=== PATIENT | female | born 1945 | race Caucasian/White ===

== ENCOUNTER 2017-10-20 15:35 | Emergency (ER) | payer MEDICARE ==
[~2017-10-20] VITALS: Ht 578.2 cm; Wt 111.4 kg
[~2017-10-20 15:35] MED LIST: ASPI-611 PO; HYDR25TA4 PO; LISI-600 PO; MULT-38 PO; PANT40TA4 PO
[2017-10-20 15:57] LABS: BASOPHILS # (AUTO) 0.1 X10'3 (0-0.2); BASOPHILS % (AUTO) 0.8 % (0-1); EOSINOPHILS # (AUTO) 0.2 X10'3 (0-0.9); EOSINOPHILS % (AUTO) 2.2 % (0-6); HEMATOCRIT 40.3 % (35.0-45.0); HEMOGLOBIN 13.9 g/dl (12.0-16.0); LYMPHOCYTES # (AUTO) 2.1 X10'3 (1.1-4.8); LYMPHOCYTES % (AUTO) 21.5 % (21-51); MEAN CORPUSCULAR HEMOGLOBIN 31.6 PG (27.0-31.0); MEAN CORPUSCULAR HGB CONC 34.6 % (33.0-36.5); MEAN CORPUSCULAR VOLUME 91.3 FL (78-98); MEAN PLATELET VOLUME 7.9 FL (7.4-10.4); MONOCYTES # (AUTO) 0.4 X10'3 (0-0.9); MONOCYTES % (AUTO) 3.9 % (2-12); NEUTROPHILS # (AUTO) 7.1 X10'3 (1.8-7.7); NEUTROPHILS % (AUTO) 71.6 % (42-75); PLATELET COUNT 285 X10'3 (140-440); RED BLOOD COUNT 4.42 X10'6 (4.20-5.60); RED CELL DISTRIBUTION WIDTH 13.4 % (11.5-14.5); WHITE BLOOD COUNT 9.9 X10'3 (4.5-11.0)
[2017-10-20 16:11] LABS: PARTIAL THROMBOPLASTIN TIME 27 SECONDS (22-32)
[2017-10-20 16:12] LABS: ALANINE AMINOTRANSFERASE 38 U/L (12-78); ALBUMIN 3.5 G/DL (3.4-5.0); ALBUMIN/GLOBULIN RATIO 0.9 (1.1-1.5); ALKALINE PHOSPHATASE 99 IU/L (46-116); ANION GAP 8 (8-16); ASPARTATE AMINO TRANSFERASE 22 U/L (10-37); BILIRUBIN,TOTAL 0.4 MG/DL (0.1-1.0); BLOOD UREA NITROGEN 21 MG/DL (7-18); BUN/CREATININE RATIO 22.3 (6.6-38.0); CALCIUM 9.4 MG/DL (8.5-10.1); CHLORIDE 102 MMOL/L (99-107); CREATININE 0.94 MG/DL (0.40-0.90); GLUCOSE 92 MG/DL (70-104); POTASSIUM 3.9 MMOL/L (3.5-5.1); SODIUM 139 MMOL/L (135-145); TOTAL CARBON DIOXIDE 29.3 MMOL/L (24-32); TOTAL PROTEIN 7.3 G/DL (6.4-8.2); eGFR 59 ML/MIN
[2017-10-20 16:47] VITALS: BP 167/84
== END 2017-10-20 16:49 | disposition home or self-care (01) ==
LOC: ER 15:36
DX: R07.89 Other chest pain (principal); M54.5 Low back pain; I10 Essential (primary) hypertension; G47.30 Sleep apnea, unspecified; Z88.8 Allergy status to other drugs, medicaments and biological substances; Z79.82 Long term (current) use of aspirin; Z79.899 Other long term (current) drug therapy
CPT/HCPCS: 36415; 71045; 80053; 84484; 85025; 85610; 85730; 93005; 99285

== ENCOUNTER 2018-01-09 08:49 | Day surgery (SDC) | payer MEDICARE ==
[2018-01-01 10:45] LABS: BASOPHILS # (AUTO) 0.1 X10'3 (0-0.2); BASOPHILS % (AUTO) 0.7 % (0-1); EOSINOPHILS # (AUTO) 0.1 X10'3 (0-0.9); EOSINOPHILS % (AUTO) 1.9 % (0-6); LYMPHOCYTES # (AUTO) 1.2 X10'3 (1.1-4.8); MEAN CORPUSCULAR HEMOGLOBIN 31.1 PG (27.0-31.0); MEAN CORPUSCULAR HGB CONC 32.9 % (33.0-36.5); MEAN CORPUSCULAR VOLUME 94.4 FL (78-98); MEAN PLATELET VOLUME 8.7 FL (7.4-10.4); MONOCYTES # (AUTO) 0.2 X10'3 (0-0.9); MONOCYTES % (AUTO) 3.3 % (2-12); NEUTROPHILS # (AUTO) 5.2 X10'3 (1.8-7.7); NEUTROPHILS % (AUTO) 76.1 % (42-75); PRE OP HEMATOCRIT 39.1 % (35.0-45.0); PRE OP HEMOGLOBIN 12.9 g/dL (12.0-16.0); PRE OP PLATELET COUNT 230 X10'3 (140-440); RED BLOOD COUNT 4.15 X10'6 (4.20-5.60)
[2018-01-01 10:59] LABS: CHLORIDE 105 MMOL/L (99-107); PRE OP POTASSIUM 3.9 MMOL/L (3.4-5.1)
[2018-01-01 11:16] LABS: ALBUMIN 3.4 G/DL (3.4-5.0); ALKALINE PHOSPHATASE 83 IU/L (46-116); BLOOD UREA NITROGEN 24 MG/DL (7-18); BUN/CREATININE RATIO 24.7 (6.6-38.0); CALCIUM 9.1 MG/DL (8.5-10.1); CREATININE 0.97 MG/DL (0.40-0.90); PRE OP ALT 30 U/L (30-65); PRE OP ANION GAP 8 (8-16); PRE OP AST 19 U/L (10-37); PRE OP BILIRUB, TOTAL 0.4 MG/DL (0.0-1.0); PRE OP GLUCOSE 95 MG/DL (70-104); PRE OP SODIUM 142 MMOL/L (135-145); TOTAL CARBON DIOXIDE 29.2 MMOL/L (24-32); TOTAL PROTEIN 6.9 G/DL (6.4-8.2); eGFR 56 ML/MIN
[~2018-01-09] VITALS: Ht 167.6 cm; Wt 102.5 kg
[~2018-01-09 08:49] MED LIST changes: +DICL75TA5 PO; -LISI-600 PO; +OLME40TA13 PO; -PANT40TA4 PO; +ceFAZolin 1GM/D5W- ADD-VANTAGE 50 ML IV ONE; +famotidine 20mg tablet PO ONE; +ringers solution, lacted 1,000 ML IV SCH
[2018-01-09 09:00] VITALS: BP 136/70
[2018-01-09] MEDS ORDERED: BUPIVAcaine/PF 2.5mg/ml (0.25%) 10ml vial ONE (10:11)
[2018-01-09 10:36] VITALS: BP 136/70
[2018-01-09] MEDS ORDERED: ringers solution, lacted 1,000 ML IV SCH (10:54)
[2018-01-09] MEDS ORDERED: meperidine/PF 25mg/ml syringe IV PRN ×3 (10:55)
[2018-01-09] MEDS ORDERED: morphine 4 MG/ML inj SYRINge IV PRN ×2 (10:55)
[2018-01-09] MEDS ORDERED: ondansetron/PF 4mg/2ml inj IV PRN (10:55)
[2018-01-09] MEDS ORDERED: proCHLORperazine 10 MG/2 ml inj IV PRN (10:55)
[2018-01-09] MEDS ORDERED: midazolam 2 mg/2 ml injection ONE ×2 (11:21→11:39)
[2018-01-09] MEDS ORDERED: sevoflurane 250ml liquid IH ONE (11:38)
[2018-01-09] MEDS ORDERED: fentaNYL/PF 50MCG/1 ML 2ML syringe ONE (11:39)
[2018-01-09] MEDS ORDERED: propofol inj 20 ML IV ONE (11:42)
[2018-01-09 12:14] VITALS: BP 110/64
[2018-01-09 12:24] VITALS: BP 104/59
[2018-01-09 12:34] VITALS: BP 98/55
[2018-01-09 12:44] VITALS: BP 99/62
== END 2018-01-09 12:54 | disposition home or self-care (01) ==
LOC: PAS 08:49
PROVIDERS: ATTEND Orthopaedic Surgery Hand Surgery
DX: G56.02 Carpal tunnel syndrome, left upper limb (principal); I10 Essential (primary) hypertension; I49.9 Cardiac arrhythmia, unspecified; E66.9 Obesity, unspecified; M19.90 Unspecified osteoarthritis, unspecified site; Z86.73 Personal history of transient ischemic attack (TIA), and cerebral infarction without residual deficits; G47.30 Sleep apnea, unspecified; Z79.899 Other long term (current) drug therapy; Z90.49 Acquired absence of other specified parts of digestive tract; Z90.710 Acquired absence of both cervix and uterus; Z98.890 Other specified postprocedural states
CPT/HCPCS: 36415; 64721; 80053; 85025; A6222; A6449; J0690; J2250; J2704; J3010; J3490; J7120

== ENCOUNTER 2018-10-28 10:33 | Emergency (ER) | payer MEDICARE ==
[~2018-10-28] VITALS: Ht 167.6 cm; Wt 103.6 kg
[~2018-10-28 10:33] MED LIST changes: -ceFAZolin 1GM/D5W- ADD-VANTAGE 50 ML IV ONE; -famotidine 20mg tablet PO ONE; -ringers solution, lacted 1,000 ML IV SCH
[2018-10-28 11:05] LABS: BASOPHILS % (AUTO) 0.5 % (0-1); EOSINOPHILS # (AUTO) 0.2 X10'3 (0-0.9); EOSINOPHILS % (AUTO) 2.4 % (0-6); HEMATOCRIT 39.8 % (35.0-45.0); HEMOGLOBIN 13.5 g/dl (12.0-16.0); LYMPHOCYTES # (AUTO) 1.4 X10'3 (1.1-4.8); LYMPHOCYTES % (AUTO) 21.3 % (21-51); MEAN CORPUSCULAR HEMOGLOBIN 31.8 PG (27.0-31.0); MEAN CORPUSCULAR HGB CONC 33.8 g/dL (33.0-36.5); MEAN CORPUSCULAR VOLUME 93.9 FL (78-98); MONOCYTES # (AUTO) 0.4 X10'3 (0-0.9); MONOCYTES % (AUTO) 6.4 % (2-12); NEUTROPHILS # (AUTO) 4.5 X10'3 (1.8-7.7); NEUTROPHILS % (AUTO) 69.4 % (42-75); PLATELET COUNT 273 X10'3 (140-440); RED BLOOD COUNT 4.24 X10'6 (4.20-5.60); RED CELL DISTRIBUTION WIDTH 13.3 % (11.5-14.5); WHITE BLOOD COUNT 6.5 X10'3 (4.5-11.0)
[2018-10-28 11:22] LABS: ALANINE AMINOTRANSFERASE 33 U/L (12-78); ALBUMIN 3.5 G/DL (3.4-5.0); ALKALINE PHOSPHATASE 80 IU/L (46-116); ANION GAP 8 (8-16); ASPARTATE AMINO TRANSFERASE 17 U/L (10-37); BILIRUBIN,TOTAL 0.4 MG/DL (0.1-1.0); BLOOD UREA NITROGEN 31 MG/DL (7-18); BUN/CREATININE RATIO 29.8 (6.6-38.0); CALCIUM 9.3 MG/DL (8.5-10.1); CHLORIDE 106 MMOL/L (99-107); CREATININE 1.04 MG/DL (0.40-0.90); GLUCOSE 97 MG/DL (70-104); POTASSIUM 4.5 MMOL/L (3.5-5.1); SODIUM 142 MMOL/L (135-145); TOTAL CARBON DIOXIDE 28.4 MMOL/L (24-32); TOTAL PROTEIN 7.1 G/DL (6.4-8.2); eGFR 52 ML/MIN
[2018-10-28 11:24] LABS: PARTIAL THROMBOPLASTIN TIME 30 SECONDS (22-32)
[2018-10-28 15:03] VITALS: BP 132/74
== END 2018-10-28 15:04 | disposition home or self-care (01) ==
LOC: ER 10:34
DX: R07.89 Other chest pain (principal); I10 Essential (primary) hypertension; G47.30 Sleep apnea, unspecified; Z88.8 Allergy status to other drugs, medicaments and biological substances; Z79.82 Long term (current) use of aspirin; Z79.899 Other long term (current) drug therapy
CPT/HCPCS: 36415; 71045; 80053; 84484; 85025; 85610; 85730; 93005; 99284

== ENCOUNTER 2020-04-18 02:11 | Emergency (ER) | payer MEDICARE ==
[~2020-04-18] VITALS: Ht 167.6 cm; Wt 109.1 kg
[2020-04-18 03:03] LABS: BASOPHILS # (AUTO) 0.1 X10'3 (0-0.2); EOSINOPHILS # (AUTO) 0.2 X10'3 (0-0.9); EOSINOPHILS % (AUTO) 1.9 % (0-6); HEMATOCRIT 42.6 % (35.0-45.0); HEMOGLOBIN 14.1 g/dl (12.0-16.0); LYMPHOCYTES % (AUTO) 22.8 % (21-51); MEAN CORPUSCULAR HEMOGLOBIN 31.2 PG (27.0-31.0); MEAN CORPUSCULAR HGB CONC 33.2 g/dL (33.0-36.5); MEAN PLATELET VOLUME 8.7 FL (7.4-10.4); MONOCYTES # (AUTO) 0.5 X10'3 (0-0.9); MONOCYTES % (AUTO) 6.2 % (2-12); NEUTROPHILS % (AUTO) 68.1 % (42-75); PLATELET COUNT 241 X10'3 (140-440); RED BLOOD COUNT 4.53 X10'6 (4.20-5.60); RED CELL DISTRIBUTION WIDTH 13.2 % (11.5-14.5); WHITE BLOOD COUNT 8.8 X10'3 (4.5-11.0)
[2020-04-18 03:18] LABS: ALANINE AMINOTRANSFERASE 35 U/L (12-78); ALBUMIN 3.4 G/DL (3.4-5.0); ALKALINE PHOSPHATASE 90 IU/L (46-116); ANION GAP 9 (8-16); ASPARTATE AMINO TRANSFERASE 15 U/L (10-37); BILIRUBIN,TOTAL 0.2 MG/DL (0.1-1.0); BLOOD UREA NITROGEN 28 MG/DL (7-18); BUN/CREATININE RATIO 30.1 (6.6-38.0); CALCIUM 9.6 MG/DL (8.5-10.1); CHLORIDE 104 MMOL/L (99-107); CREATININE 0.93 MG/DL (0.40-0.90); GLUCOSE 109 MG/DL (70-104); MAGNESIUM 1.9 MG/DL (1.5-2.4); POTASSIUM 3.6 MMOL/L (3.5-5.1); SODIUM 141 MMOL/L (135-145); TOTAL CARBON DIOXIDE 27.7 MMOL/L (24-32); TOTAL PROTEIN 6.9 G/DL (6.4-8.2); eGFR 59 ML/MIN
[2020-04-18 03:21] VITALS: BP 143/64
== END 2020-04-18 04:39 | disposition home or self-care (01) ==
LOC: ER 02:12
DX: R00.2 Palpitations (principal); I48.92 Unspecified atrial flutter; R42 Dizziness and giddiness; I10 Essential (primary) hypertension; F17.200 Nicotine dependence, unspecified, uncomplicated; Z88.8 Allergy status to other drugs, medicaments and biological substances; Z79.82 Long term (current) use of aspirin; Z79.899 Other long term (current) drug therapy
CPT/HCPCS: 36415; 80053; 83735; 84484; 85025; 93005; 99284

== ENCOUNTER 2020-06-12 16:19 | Emergency (ER) | payer MEDICARE ==
[~2020-06-12] VITALS: Ht 167.6 cm; Wt 120.0 kg
[2020-06-12] MEDS ORDERED: aspirin 81mg tab.chew PO ONE (16:55)
[2020-06-12 17:29] LABS: BASOPHILS # (AUTO) 0.1 X10'3 (0-0.2); BASOPHILS % (AUTO) 1.3 % (0-1); EOSINOPHILS # (AUTO) 0.1 X10'3 (0-0.9); EOSINOPHILS % (AUTO) 0.8 % (0-6); HEMATOCRIT 39.6 % (35.0-45.0); HEMOGLOBIN 12.8 g/dl (12.0-16.0); LYMPHOCYTES # (AUTO) 1.9 X10'3 (1.1-4.8); LYMPHOCYTES % (AUTO) 20.6 % (21-51); MEAN CORPUSCULAR HEMOGLOBIN 30.3 PG (27.0-31.0); MEAN CORPUSCULAR HGB CONC 32.3 g/dL (33.0-36.5); MEAN PLATELET VOLUME 8.2 FL (7.4-10.4); MONOCYTES # (AUTO) 0.4 X10'3 (0-0.9); MONOCYTES % (AUTO) 4.7 % (2-12); NEUTROPHILS # (AUTO) 6.5 X10'3 (1.8-7.7); NEUTROPHILS % (AUTO) 72.6 % (42-75); PLATELET COUNT 258 X10'3 (140-440); RED BLOOD COUNT 4.21 X10'6 (4.20-5.60); RED CELL DISTRIBUTION WIDTH 13.8 % (11.5-14.5)
[2020-06-12 17:32] LABS: ALANINE AMINOTRANSFERASE 30 U/L (12-78); ALBUMIN 3.4 G/DL (3.4-5.0); ALKALINE PHOSPHATASE 87 IU/L (46-116); ANION GAP 9 (8-16); ASPARTATE AMINO TRANSFERASE 17 U/L (10-37); BILIRUBIN,TOTAL 0.2 MG/DL (0.1-1.0); BLOOD UREA NITROGEN 32 MG/DL (7-18); BUN/CREATININE RATIO 28.8 (6.6-38.0); CALCIUM 8.8 MG/DL (8.5-10.1); CHLORIDE 106 MMOL/L (99-107); CREATININE 1.11 MG/DL (0.40-0.90); GLUCOSE 99 MG/DL (70-104); SODIUM 140 MMOL/L (135-145); TOTAL CARBON DIOXIDE 24.7 MMOL/L (24-32); TOTAL PROTEIN 6.8 G/DL (6.4-8.2); eGFR 48 ML/MIN
[2020-06-12 18:44] LABS: CLARITY,URINE SLIGHTLY CLOUDY (Clear); COLOR,URINE YELLOW (Yellow); GLUCOSE, URINE NEGATIVE (Neg); KETONES,URINE TRACE mg/dl (Neg); LEUKOCYTE ESTERASE ,URINE NEGATIVE (Neg); NITRITES, URINE NEGATIVE (Neg); OCCULT BLOOD,URINE NEGATIVE (Neg); PROTEIN,URINE NEGATIVE (Neg); UROBILINOGEN,URINE 0.2 E.U/dL (0.2-1.0)
[2020-06-12 18:52] LABS: UA COLLECTION TYPE CLN CATCH MIDSTREAM
--- NOTE | 2020-06-12 18:55 | NUR ---
FABIAN BLEVINS INFORMED THAT PATIENT IS UNABLE TO HAVE HER RYTHMN MONITORED AT THIS TIME
--- NOTE | 2020-06-12 18:55 | NUR ---
PATIENT DENIES CP, SOB OR LIGHTHEADEDNESS AT THIS TIME. PT AXOX4,UP FROM CHAIR DENYING DIZZYNESS AT THIS TIME, AMBULATED IN ROOM WNL. PATIENT HAS FOLLOW UP APPOINTMENT WITH DR MORENO IN 3 MONTHS. PACEMAKER INTERIGATED BY MARIA L SALCEDO.
[2020-06-12 19:04] LABS: BACTERIA,URINE FEW /HPF (Neg); RBC,URINE NONE SEEN /HPF (0-2); SQUAMOUS EPITHELIAL CELL,UR MODERATE /LPF (FEW); WBC,URINE NONE SEEN /HPF (0-4)
[2020-06-12 20:09] VITALS: BP 147/72
== END 2020-06-12 20:10 | disposition home or self-care (01) ==
LOC: ER 16:20
DX: R42 Dizziness and giddiness (principal); R00.0 Tachycardia, unspecified; R00.1 Bradycardia, unspecified; I10 Essential (primary) hypertension; G47.30 Sleep apnea, unspecified; Z88.8 Allergy status to other drugs, medicaments and biological substances; Z79.82 Long term (current) use of aspirin; Z79.899 Other long term (current) drug therapy
CPT/HCPCS: 36415; 71045; 80053; 81001; 84484; 85025; 93005; 99285

== ENCOUNTER 2021-03-19 07:07 | Day surgery (SDC) | payer MEDICARE ==
[2021-03-12 16:08] LABS: BASOPHILS # (AUTO) 0.1 X10'3 (0-0.2); BASOPHILS % (AUTO) 0.7 % (0-1); EOSINOPHILS # (AUTO) 0.1 X10'3 (0-0.9); LYMPHOCYTES # (AUTO) 1.5 X10'3 (1.1-4.8); LYMPHOCYTES % (AUTO) 17.7 % (21-51); MEAN CORPUSCULAR HEMOGLOBIN 31.6 PG (27.0-31.0); MEAN CORPUSCULAR HGB CONC 33.4 g/dL (33.0-36.5); MEAN CORPUSCULAR VOLUME 94.6 FL (78-98); MEAN PLATELET VOLUME 7.8 FL (7.4-10.4); MONOCYTES # (AUTO) 0.5 X10'3 (0-0.9); MONOCYTES % (AUTO) 6.1 % (2-12); NEUTROPHILS # (AUTO) 6.4 X10'3 (1.8-7.7); NEUTROPHILS % (AUTO) 74.5 % (42-75); PRE OP HEMATOCRIT 41.1 % (35.0-45.0); PRE OP HEMOGLOBIN 13.7 g/dL (12.0-16.0); PRE OP PLATELET COUNT 278 X10'3 (140-440); RED BLOOD COUNT 4.35 X10'6 (4.20-5.60); RED CELL DISTRIBUTION WIDTH 13.3 % (11.5-14.5)
[2021-03-12 16:23] LABS: ALBUMIN 3.4 G/DL (3.4-5.0); ALBUMIN/GLOBULIN RATIO 0.9 (1.1-1.5); ALKALINE PHOSPHATASE 88 IU/L (46-116); BLOOD UREA NITROGEN 26 MG/DL (7-18); BUN/CREATININE RATIO 25.7 (6.6-38.0); CALCIUM 9.3 MG/DL (8.5-10.1); CHLORIDE 106 MMOL/L (99-107); CREATININE 1.01 MG/DL (0.40-0.90); PRE OP ALT 33 U/L (30-65); PRE OP ANION GAP 7 (8-16); PRE OP AST 19 U/L (10-37); PRE OP BILIRUB, TOTAL 0.2 MG/DL (0.0-1.0); PRE OP GLUCOSE 100 MG/DL (70-104); PRE OP POTASSIUM 4.1 MMOL/L (3.4-5.1); PRE OP SODIUM 143 MMOL/L (135-145); TOTAL CARBON DIOXIDE 30.5 MMOL/L (24-32); TOTAL PROTEIN 7.1 G/DL (6.4-8.2); eGFR 53 ML/MIN
[~2021-03-19] VITALS: Ht 167.6 cm; Wt 109.8 kg
[~2021-03-19 07:07] MED LIST changes: -ASPI-611 PO; +BUPIVAcaine/PF 2.5 mg/ml (0.25%) 30ml vial ONE; +GLUC1CAP36 PO; +SOTA80TA PO; +cefazolin/dext.iso 2gm/50ml IV ONE; +famotidine 20mg tablet PO ONE; +ringers solution, lacted 1,000 ML IV SCH
[2021-03-19] MEDS ORDERED: fentaNYL/PF 50MCG/1 ML 2ML syringe ONE (08:43)
[2021-03-19] MEDS ORDERED: midazolam 1 mg/ML 2ml injection ONE (09:42)
[2021-03-19 09:44] VITALS: BP 147/90
[2021-03-19 09:48] VITALS: BP 147/90
[2021-03-19 10:11] VITALS: BP 140/73
--- NOTE | 2021-03-19 10:11 | NUR ---
Received from OR via [facility], accompanied by Anesthesiologist DR. LIM and report given by Anesthesiolgist. RIGHT CARPAL TUNNEL RELEASE, CAP REFILL LESS THAN 3 SECONDS, WIGGLES FINGERS, DRESSING CDI. 20G PIV TO LEFT WRIST WITH LR RUNNING AT 20ML/HR. VSS, PACED ATRIAL AND OCC VENTRICULAR. DENIES PAIN. REQUESTS COFFEE UPON ARRIVING TO RECOVERY.
[2021-03-19 10:21] VITALS: BP 121/74
[2021-03-19 10:31] VITALS: BP 139/77
[2021-03-19] MEDS ORDERED: ringers solution, lacted 1,000 ML IV SCH (10:40)
[2021-03-19] MEDS ORDERED: meperidine/PF 25mg/ml syringe IV PRN ×3 (10:40)
[2021-03-19] MEDS ORDERED: proCHLORperazine 10 MG/2 ml inj IV PRN (10:40)
[2021-03-19] MEDS ORDERED: morphine 4 MG/ML inj SYRINge IV PRN (10:40)
[2021-03-19] MEDS ORDERED: morphine 2 MG/ML inj. syringe IV PRN (10:40)
[2021-03-19] MEDS ORDERED: ondansetron/PF 4mg/2ml inj IV PRN (10:40)
[2021-03-19 10:41] VITALS: BP 139/79
--- NOTE | 2021-03-19 10:41 | NUR ---
PATIENT GIVEN DISCHARGE INSTRUCTIONS. DRESSING TO RIGHT WRIST CDI. DC'D 20G PIV TO LEFT WRIST WITH NO COMPLICATIONS. VSS. PATIENT BEING A/V PACED AT LOWEST RATE OF 60. DENIES PAIN, DENIES N/V. ABLE TO TOLERATE FLUIDS. ALL BELONGINGS ACCOUNTED FOR. DISCHARGED HOME WITH , JAZLYN.
== END 2021-03-19 10:41 | disposition home or self-care (01) ==
LOC: PAS 07:07
PROVIDERS: ATTEND Orthopaedic Surgery Hand Surgery
DX: G56.01 Carpal tunnel syndrome, right upper limb (principal); I10 Essential (primary) hypertension; M19.90 Unspecified osteoarthritis, unspecified site; G47.30 Sleep apnea, unspecified; J44.9 Chronic obstructive pulmonary disease, unspecified; E66.9 Obesity, unspecified; Z68.41 Body mass index [BMI] 40.0-44.9, adult; Z90.710 Acquired absence of both cervix and uterus; Z90.49 Acquired absence of other specified parts of digestive tract; Z98.890 Other specified postprocedural states; Z79.899 Other long term (current) drug therapy; Z86.73 Personal history of transient ischemic attack (TIA), and cerebral infarction without residual deficits; Z95.0 Presence of cardiac pacemaker; Z87.891 Personal history of nicotine dependence; Z20.822 Contact with and (suspected) exposure to COVID-19; Z85.828 Personal history of other malignant neoplasm of skin; Z80.8 Family history of malignant neoplasm of other organs or systems; Z82.49 Family history of ischemic heart disease and other diseases of the circulatory system
CPT/HCPCS: 36415; 64721; 80053; 82948; 85025; A6222; J0690; J2250; J3010; J3490; J7030; J7120; U0003; U0005; Z7506; Z7512; A4215